=== PATIENT | female | born 1950 | race Caucasian/White ===

== ENCOUNTER 2019-07-06 17:57 | Inpatient (IN) ==
[2019-07-06] MEDS ORDERED: Ondansetron 4 MG/2 ML VIAL IVP ONE (18:15)
[2019-07-06 18:38] LABS: Basophils # 0.1 K/mcL (0.0-0.2); Basophils % 0.6 %; Eosinophils # 0.2 K/mcL (0.0-0.6); Eosinophils % 1.9 %; Hematocrit 41.8 % (35.3-44.9); Hemoglobin 13.3 g/dL (11.5-15.4); Immature Granulocytes % 0.8 % (0-4); Lymphocytes # 1.3 K/mcL (0.6-4.6); Mean Corpuscular HGB Conc 31.8 g/dL (31.6-35.5); Mean Corpuscular Hemoglobin 28.9 pg (28.0-33.3); Mean Corpuscular Volume 90.9 fL (83.0-100.0); Monocytes # 0.5 K/mcL (0.0-1.3); Monocytes % 5.5 %; Neutrophils # 6.8 K/mcL (1.6-8.9); Platelet Count 205 K/mcL (140-400); Red Cell Distribution Width 13.2 % (11.5-14.5); Segmented Neutrophils % 76.2 %; White Blood Count 8.9 K/mcL (4.3-11.1)
[2019-07-06 18:49] LABS: INR 0.9; Prothrombin Time 10.5 Seconds (9.4-12.1)
[2019-07-06 18:51] LABS: Activated Partial Thrombo Time 30.1 Seconds (26.0-36.0)
[2019-07-06 18:57] LABS: Bilirubin,Urine Negative (Negative); Blood,Urine Small (Negative); Clarity,Urine Clear (Clear); Color,Urine Yellow (Yellow); Glucose,Urine (UA) 250 mg/dL (Normal); Ketones,Urine Negative (Negative); Leukocyte Esterase,Urine Negative (Negative); Nitrite,Urine Negative (Negative); Protein,Urine 100 mg/dL (Neg-Trace); Specific Gravity,Urine 1.018 (1.010-1.025); Urobilinogen,Urine Normal (Normal)
[2019-07-06 18:57] LABS: Alanine Aminotransferase 37 Units/L (7-52); Albumin 3.9 g/dL (3.5-5.7); Albumin/Globulin Ratio 1.3 (1.1-2.2); Alkaline Phosphatase 58 Units/L (34-104); Aspartate Amino Transferase 26 Units/L (13-39); BUN/Creatinine Ratio 23 (6-26); Bilirubin,Total 0.4 mg/dL (0.3-1.0); Blood Urea Nitrogen 26 mg/dL (8-23); Calcium 9.9 mg/dL (8.6-10.3); Carbon Dioxide 20 mEq/L (23-29); Chloride 107 mEq/L (98-107); Glucose 203 mg/dL (70-105); Lipase 29 Units/L (11-82); Magnesium 1.5 mg/dL (1.6-2.6); Osmolality,Calculated 297 (280-300); Potassium 4.2 mEq/L (3.5-5.1); Sodium 138 mEq/L (136-145); Total Protein 6.9 g/dL (6.4-8.9); eGFR For African Americans 58 (> 60); eGFR For Non-African Americans 48 (> 60)
[2019-07-06 18:58] LABS: Troponin I < 0.03 ng/mL (< 0.04)
[2019-07-06 18:59] LABS: Bacteria,Urine None Seen per hpf (None-Few); Hyaline Casts,Urine None Seen per lpf (None-Few); Squamous Epithelial Cell,Urine Moderate per lpf (None-Few)
[2019-07-06] MEDS ORDERED: *HR* HYDROmorphone (PF) 1 MG/ML SYRINGE IVP ONE (19:03)
[2019-07-06] MEDS ORDERED: Naloxone 0.4 MG/ML INJ IVP PRN (20:40)
[2019-07-06] MEDS ORDERED: Ketorolac 30 MG/ML VIAL IVP PRN (20:40)
[2019-07-06] MEDS ORDERED: Ondansetron 4 MG/2 ML VIAL IVP PRN (20:40)
[2019-07-06] MEDS ORDERED: Dextrose Gel 15 GM/37.5 ML TUBE PO PRN ×2 (20:45)
[2019-07-06] MEDS ORDERED: Ringers Solution, Lactated 1,000 ML IVC SCH (20:45)
[2019-07-06] MEDS ORDERED: *HR* Dextrose 50 % in Water (Syg) 50 ML SYRINGE IVP PRN (20:45)
[2019-07-06] MEDS ORDERED: D5% in Water 1,000 ML IVC PRN (20:45)
[2019-07-06] MEDS ORDERED: 0.9 % Sodium Chloride 1,000 ML ONE (22:34)
[2019-07-07] MEDS ORDERED: Ondansetron 4 MG/2 ML VIAL IVP SCH
[2019-07-07] MEDS ORDERED: Ondansetron 4 MG/2 ML VIAL IVP PRN ×2 (00:15→18:40)
[2019-07-07] MEDS: Insulin LISPRO 300 UNITS/3 ML VIAL SQ SCH ×4 (00:50→17:44)
[2019-07-07 01:27] LABS: Hematocrit 36.3 % (35.3-44.9); Mean Corpuscular HGB Conc 32.2 g/dL (31.6-35.5); Mean Corpuscular Hemoglobin 29.3 pg (28.0-33.3); Mean Corpuscular Volume 90.8 fL (83.0-100.0); Mean Platelet Volume 11.1 fL (9.4-12.4); Platelet Count 192 K/mcL (140-400); Red Cell Distribution Width 13.2 % (11.5-14.5); White Blood Count 7.5 K/mcL (4.3-11.1)
[2019-07-07 01:28] LABS: Hemoglobin 11.7 g/dL (11.5-15.4)
[2019-07-07 01:42] LABS: Albumin 3.3 g/dL (3.5-5.7); Albumin/Globulin Ratio 1.3 (1.1-2.2); Bilirubin,Total 0.3 mg/dL (0.3-1.0); Calcium 9.1 mg/dL (8.6-10.3); Globulin 2.6 g/dL (2.4-3.5); Potassium 5.1 mEq/L (3.5-5.1); Total Protein 5.9 g/dL (6.4-8.9)
[2019-07-07] MEDS ORDERED: Ringers Solution, Lactated 1,000 ML IVC SCH (08:45)
[2019-07-07 09:23] LABS: Estimated Average Glucose 171 mg/dl
[2019-07-07] MEDS ORDERED: Lidocaine HCL 4 ML Topical Solution (Laryng-O-Jet Kit Sterile Pak) TP ONE (14:56)
[2019-07-07] MEDS ORDERED: Ondansetron 4 MG/2 ML VIAL ONE (14:56)
[2019-07-07] MEDS ORDERED: *HR* Rocuronium Bromide 50 MG/5 ML VIAL ONE ×2 (14:56→16:41)
[2019-07-07] MEDS ORDERED: *HR* Succinylcholine 200 MG/10 ML VIAL IVP ONE (14:56)
[2019-07-07] MEDS ORDERED: Dexamethasone 4 MG/ML VIAL ONE (14:56)
[2019-07-07] MEDS ORDERED: Lidocaine -MPF 2% 2 ML VIAL ONE (14:56)
[2019-07-07] MEDS ORDERED: *HR* Propofol 200 MG/20 ML VIAL IVP ONE (14:57)
[2019-07-07] MEDS ORDERED: *HR* FentaNYL (PF) 100 MCG/2 ML VIAL ONE (15:11)
[2019-07-07] MEDS ORDERED: Famotidine 20 MG/2 ML VIAL ONE (15:32)
[2019-07-07] MEDS ORDERED: Acetaminophen IV 1,000 MG/100 ML INFUS..BTL ONE (15:32)
[2019-07-07] MEDS ORDERED: Clindamycin 900 MG/50 ML 900 MG/50 ML IV.SOLN IVPB ONE (16:02)
[2019-07-07] MEDS ORDERED: EPHEDrine 50 MG/ML VIAL ONE (16:10)
[2019-07-07] MEDS ORDERED: *HR* PHENYLEPHRINE 1,000 MCG/10 ML SYRINGE IVP ONE (16:14)
[2019-07-07] MEDS ORDERED: *HR* HYDROMORPHONE 2 MG/ML VIAL ONE (17:45)
[2019-07-07] MEDS ORDERED: Pantoprazole 40 MG VIAL IVP SCH (18:00)
[2019-07-07] MEDS ORDERED: *HR* Meperidine 25 MG/ML SYRINGE IVP PRN (18:03)
[2019-07-07] MEDS ORDERED: *HR* Promethazine 25 MG/ML VIAL IVP PRN (18:03)
[2019-07-07] MEDS ORDERED: *HR* HYDROmorphone PF 0.5 MG/0.5 ML SYRINGE IVP PRN (18:03)
[2019-07-07] MEDS ORDERED: *HR* OxyCODONE Immed Rel 5 MG TABLET PO PRN (18:03)
[2019-07-07] MEDS ORDERED: Ondansetron 4 MG/2 ML VIAL IVP ONE (18:03)
[2019-07-07] MEDS ORDERED: Dextrose Gel 15 GM/37.5 ML TUBE PO PRN ×2 (18:40)
[2019-07-07] MEDS ORDERED: D5% in Water 1,000 ML IVC PRN (18:40)
[2019-07-07] MEDS ORDERED: Naloxone 0.4 MG/ML INJ IVP PRN (18:40)
[2019-07-07] MEDS ORDERED: *HR* Dextrose 50 % in Water (Syg) 50 ML SYRINGE IVP PRN (18:40)
[2019-07-07] MEDS ORDERED: Insulin LISPRO 300 UNITS/3 ML VIAL SQ SCH (21:00)
[2019-07-07] MEDS: Ringers Solution, Lactated 1,000 ML IVC SCH (21:15)
[2019-07-08] MEDS ORDERED: Insulin DETEMIR 100 UNIT/ML X5UNITS SQ ONE (00:58)
[2019-07-08] MEDS ORDERED: Insulin LISPRO 300 UNITS/3 ML VIAL SQ ONE ×2 (00:59→05:30)
[2019-07-08] MEDS: Pantoprazole 40 MG VIAL IVP SCH ×2 (06:14→17:55)
[2019-07-08] MEDS ORDERED: Insulin LISPRO 300 UNITS/3 ML VIAL SQ SCH ×2 (07:30)
[2019-07-08] MEDS ORDERED: Insulin DETEMIR 100 UNIT/ML X5UNITS SQ SCH (09:00)
[2019-07-08] MEDS: Insulin LISPRO 300 UNITS/3 ML VIAL SQ SCH ×4 (09:06→21:29)
[2019-07-08] MEDS: Ringers Solution, Lactated 1,000 ML IVC SCH ×2 (09:11→21:35)
[2019-07-08 09:12] LABS: Basophils % 0.3 %; Eosinophils % 0.2 %; Hemoglobin 11.3 g/dL (11.5-15.4); Immature Granulocytes % 0.5 % (0-4); Lymphocytes # 1.2 K/mcL (0.6-4.6); Mean Corpuscular HGB Conc 31.4 g/dL (31.6-35.5); Mean Corpuscular Hemoglobin 28.8 pg (28.0-33.3); Mean Corpuscular Volume 91.6 fL (83.0-100.0); Mean Platelet Volume 10.8 fL (9.4-12.4); Monocytes # 0.7 K/mcL (0.0-1.3); Monocytes % 7.3 %; Neutrophils # 7.7 K/mcL (1.6-8.9); Platelet Count 203 K/mcL (140-400); Red Blood Count 3.93 M/mcL (3.82-4.97); Red Cell Distribution Width 13.4 % (11.5-14.5); Segmented Neutrophils % 79.7 %; White Blood Count 9.6 K/mcL (4.3-11.1)
[2019-07-08 09:40] LABS: Calcium 8.4 mg/dL (8.6-10.3); Potassium 4.7 mEq/L (3.5-5.1)
[2019-07-08] MEDS ORDERED: Ibuprofen 800 MG TABLET PO SCH (10:15)
[2019-07-08] MEDS: amLODIPine 5 MG TABLET PO SCH (12:47)
[2019-07-08] MEDS: Insulin DETEMIR 100 UNIT/ML X5UNITS SQ SCH (21:35)
[2019-07-08] MEDS: *HR* OxyCODONE Immed Rel 5 MG TABLET PO PRN (21:39)
[2019-07-09] MEDS: Pantoprazole 40 MG VIAL IVP SCH (06:10)
[2019-07-09 06:13] LABS: Calcium 8.3 mg/dL (8.6-10.3); Magnesium 1.8 mg/dL (1.6-2.6); Potassium 3.8 mEq/L (3.5-5.1)
[2019-07-09] MEDS: amLODIPine 5 MG TABLET PO SCH (07:48)
[2019-07-09] MEDS: Insulin LISPRO 300 UNITS/3 ML VIAL SQ SCH ×4 (07:48→21:18)
[2019-07-09] MEDS: Insulin DETEMIR 100 UNIT/ML X5UNITS SQ SCH ×2 (07:49→21:21)
[2019-07-09] MEDS: *HR* OxyCODONE Immed Rel 5 MG TABLET PO PRN (07:53)
[2019-07-09] MEDS ORDERED: Acetaminophen 325 MG TABLET PO PRN (10:08)
[2019-07-09] MEDS: Ringers Solution, Lactated 1,000 ML IVC SCH (10:31)
[2019-07-09 10:49] LABS: Bilirubin,Urine Negative (Negative); Blood,Urine Negative (Negative); Clarity,Urine Clear (Clear); Color,Urine Yellow (Yellow); Glucose,Urine (UA) 250 mg/dL (Normal); Ketones,Urine Negative (Negative); Leukocyte Esterase,Urine Small (Negative); Nitrite,Urine Negative (Negative); PH,Urine 5.5 pH Units (5.0-8.0); Protein,Urine 100 mg/dL (Neg-Trace); Specific Gravity,Urine 1.017 (1.010-1.025); Urobilinogen,Urine Normal (Normal)
[2019-07-09 10:51] LABS: Bacteria,Urine None Seen per hpf (None-Few); Hyaline Casts,Urine None Seen per lpf (None-Few); RBC,Urine 0-3 per hpf (0-3); Squamous Epithelial Cell,Urine Many per lpf (None-Few)
[2019-07-10] MEDS ORDERED: amLODIPine 5 MG TABLET PO ONE (00:24)
[2019-07-10] MEDS: Ringers Solution, Lactated 1,000 ML IVC SCH (05:03)
[2019-07-10 07:13] LABS: Calcium 8.6 mg/dL (8.6-10.3); Potassium 4.1 mEq/L (3.5-5.1)
[2019-07-10] MEDS: Insulin LISPRO 300 UNITS/3 ML VIAL SQ SCH (07:47)
[2019-07-10] MEDS: Insulin DETEMIR 100 UNIT/ML X5UNITS SQ SCH (07:48)
[2019-07-10] MEDS: amLODIPine 5 MG TABLET PO SCH (07:48)
[2019-07-10] MEDS ORDERED: amLODIPine 5 MG TABLET PO SCH (09:00)
[2019-07-10 10:40] VITALS: BP 173/91
== END 2019-07-10 11:59 | disposition home or self-care (01) ==
LOC: EMEROOARM 17:57 → 3ANU 17:57 → SUATTDRO 19:41 → 3ANU 19:55
PROVIDERS: ADMIT Family Medicine; ATTEND Internal Medicine